=== PATIENT | female | born 1945 | race Caucasian/White ===

== ENCOUNTER 2016-07-04 13:00 | Day surgery (SDC) | payer MEDICARE ==
[~2016-07-04] VITALS: Ht 157.5 cm; Wt 64.0 kg
[~2016-07-04 13:00] MED LIST: 0.9% Sodium Chloride 1,000 ML IV PRN; ALLO300T29 PO; ASPI81TA2 PO; ATEN25TA38 PO; CHOL10002 PO; EST1 PO; FURO20TA PO; GLIP2.5T2 PO; METF500T4 PO; SIMV40TA5 PO; SYN.112T PO; Sodium Chloride LOK Flush 10 mL Syringe IV PRN; VITA1TAB31 PO; fentaNYL-PF 50 mCg/mL 2 mL Inj IVPUSH PRN
[2016-07-04 15:49] VITALS: BP 144/66; PULSE 65; RESP 18; O2SAT 95
--- NOTE | 2016-07-04 16:49 | PCM.ENDCOL ---
Colonoscopy Date of Service: Jul 04, 2016 Physician Sudhere Miles MD Pre Procedure Diagnosis: History of polyps Post Procedure Dx & Findings: Polyp hemorrhoids diverticula Procedure Colonoscopy PROCEDURE IN DETAIL: Prep adequate Withdrawal time 15 minutes After unremarkable rectal examination the Olympus video colonoscope was inserted patient's anal canal and was advanced to cecum. Landmarks were identified including the ileocecal valve and appendiceal orifice. Scope was withdrawn systematically. Visualized colonic mucosa showed healthy shiny mucosa with normal healthy-appearing vasculature. In the ascending colon there was a 1 mm polyp which was removed completely using cold forceps. In the rectosigmoid junction, there were 2 polyps one was about 2 mm in size which was removed completely using cold snare. The other one was about 1 cm in size. This was removed completely using hot snare. Visible vessel noted after the polypectomy. 2 resolution clips deployed. In the sigmoid colon there were a few small diverticuli. In the rectum retroflexion was done which showed hemorrhoids. Anal canal was inspected carefully on the way out and hemorrhoids noted. Impression Polyps 3 status post complete removal and the largest was 1 cm. Diverticuli Hemorrhoids Recommendation Repeat colonoscopy 3 years Diverticular diet Presedation Assessment Risks and Benefits Informed consent was obtained from the patient after all risks and benefits including but not limited to drug reaction, infection, pain, bleeding, perforation, as well as alternatives were discussed. Patient monitoring Continuous pulse oximetry, cardiac monitoring, blood pressure monitoring, IV access, and oxygen at 2L per nasal cannula. Periprocedural Fentanyl: Fentanyl 75mcg Incrementally Midazolam: Midazolam 3mg Incrementally Complications There were no periprocedural complications identified. Post Procedure Plan Post Procedure Recommendations 1. Restrict activities today. 2. Resume normal activities in the morning. 3. Resume medications. 4. Patient informed of normal post procedure side effects as bloating, drowsiness, blood streaking in the stool. 5. average risk CRCS. If colon polyps come back as: -Hyperplastic- can repeat colonoscopy in 10 years -Tubular adenoma- repeat colonoscopy in 5 years -Tubulovillous/villous adenoma- repeat colonoscopy in 3 years -If any dysplasia- return to clinic as soon as possible 6. Please don't hesitate to call me with any questions. Sudheer Miles MD Jul 04, 2016 16:49
[2016-07-04 16:50] VITALS: BP 129/48; PULSE 74; RESP 12; O2SAT 97
[2016-07-04 16:59] VITALS: BP 106/52; PULSE 71; RESP 12; O2SAT 98
--- NOTE | 2016-07-06 11:12 | PATH ---
SURGICAL PATHOLOGY Attending Physician:Sudheer Miles M.D. CASE STATUS: Signed Out PATIENT NAME: ERLIN GAMBLE PID: [id number] : 1945 DATE COLLECTED:07/04/2016 00:00 SPECIMEN: 1: Colon, Biopsy 2: Rectum, Biopsy CLINICAL HISTORY: 1). ASCENDING COLON POLYP 2). RECTAL POLYPS FINAL DIAGNOSIS: 1. Ascending Colon Polyp: Benign colonic mucosa consistent with polypoid redundancy. No evidence of malignancy or dysplasia. 2. Rectal Polyp: Tubular adenoma. Hyperplastic polyp. ICD10 D12.6 GROSS DESCRIPTION: The specimen is received in two formalin filled containers labeled with the patient's name. 1). The specimen is sublabeled "ascending colon polyp" and consists of a 0.2 x 0.2 x 0.2 CM portion of tissue which is entirely submitted in cassettes 1A. 2). The specimen is sublabeled "rectal polyps" and consists of 3 portions of tissue which aggregate to 0.3 x 0.3 x 0.3 CM. The specimen is entirely submitted in cassette 2A. 07/05/2016 [facility] ICD-9 CODES: CPT CODES: 1: 35089 2: 56908 Electronically Signed Out Horacio Kingston MD Formerly [facility] Pathology [facility] [address], [place] [address] Technical component performed at [facility], [facility] [address], [address]
== END 2016-07-04 23:59 | disposition home or self-care (01) ==
LOC: END 13:00
PROVIDERS: ATTEND Internal Medicine
DX: Z12.11 Encounter for screening for malignant neoplasm of colon (principal); K63.5 Polyp of colon; D12.8 Benign neoplasm of rectum; K57.30 Diverticulosis of large intestine without perforation or abscess without bleeding; K64.8 Other hemorrhoids; Z80.0 Family history of malignant neoplasm of digestive organs; E78.2 Mixed hyperlipidemia; I10 Essential (primary) hypertension; M10.9 Gout, unspecified; E11.9 Type 2 diabetes mellitus without complications; R00.2 Palpitations; H93.13 Tinnitus, bilateral; E03.9 Hypothyroidism, unspecified; E55.9 Vitamin D deficiency, unspecified; I65.23 Occlusion and stenosis of bilateral carotid arteries; Z79.84 Long term (current) use of oral hypoglycemic drugs; Z79.82 Long term (current) use of aspirin
CPT/HCPCS: 45385; 88305; 99153; G0500; J7030